=== PATIENT | female | born 2000 | race Caucasian/White ===

== ENCOUNTER 2023-02-10 08:17 | Outpatient (REF) | payer OTHER, SELFPAY ==
--- NOTE | ~2023-02-10 | MR_ITS ---
EXAMINATION: MR KNEE WITHOUT CONTRAST, LEFT CLINICAL INFORMATION: Traumatic injury, effusion. COMPARISON: None available. TECHNIQUE: MRI of the knee without contrast was performed using routine sequences on a high-field scanner. FINDINGS: MENISCI: Medial Meniscus: Intact. Possible meniscocapsular separation posteromedially. Lateral Meniscus: Small peripheral undersurface tear of the posterior horn as well as an inner margin radial tear. LIGAMENTS: Cruciate: The anterior cruciate ligament is completely torn. The posterior cruciate ligament is intact. Collateral: Grade 1 sprain of the proximal and mid MCL. There may be a minimal sprain of the proximal fibular collateral ligament. The lateral collateral ligament complex appears otherwise intact. EXTENSOR MECHANISM: Intact. ARTICULAR CARTILAGE/BONE: Patellofemoral Compartment: Normal. Medial Compartment: Normal. Lateral Compartment: Impaction fracture with 3 mm concavity of the lateral femoral condyle anteriorly near the sulcus terminalis with surrounding marrow edema. Mild bone bruise of the posterior aspect of the tibia. JOINT FLUID AND BURSAE: Moderate hemarthrosis. MR/MR knee LT wo con IMPRESSION: 1. Complete ACL tear with impaction fracture of the lateral femoral condyle and a moderate hemarthrosis. 2. Small peripheral undersurface tear of the posterior horn of the lateral meniscus and a small inner margin radial tear. 3. Grade 1 MCL sprain. Possible minimal sprain of the proximal fibular collateral ligament. 4. Possible medial meniscocapsular separation posteromedially.
== END 2023-02-10 08:18 | disposition home or self-care (01) ==
LOC: HO.MRI 08:17
PROVIDERS: Visit Provider Student in an Organized Health Care Education/Training Program
DX: M25.362 Other instability, left knee (principal); M25.462 Effusion, left knee
CPT/HCPCS: 73721